=== PATIENT | male | born 1985 | race Caucasian/White ===

== ENCOUNTER 2024-07-18 07:11 | Day surgery (SDC) | payer BC, MEDICAID ==
[~2024-07-18] VITALS: Ht 193 cm; Wt 113.0 kg
[2024-07-18 07:24] VITALS: TEMP 98.9; O2SAT 100
[2024-07-18 07:26] VITALS: O2SAT 99
[2024-07-18 08:11] LABS: HEMATOCRIT. 48.8 % (42.0-52.0); HEMOGLOBIN. 16.1 g/dL (14.0-18.0); MEAN CORPUSCULAR HEMOGLOBIN 30.1 pg (28.0-32.0); MEAN CORPUSCULAR HGB CONC 33.1 g/dL (31.0-37.0); MEAN CORPUSCULAR VOLUME 90.8 fL (80.0-94.0); MEAN PLATELET VOLUME 8.3 fl (7.4-10.4); PLATELET 180 x1000/uL (130-400); RED BLOOD CELL COUNT 5.37 mill/uL (4.7-6.1); RED CELL DISTRIBUTION WIDTH 13.5 % (11.6-14.6); WHITE BLOOD COUNT 9.3 x1000/uL (4.5-11.0)
[2024-07-18 08:12] LABS: DIFFERENTIAL COMMENT 1
[2024-07-18 08:17] LABS: CHLORIDE 108 mEq/L (98-107); POTASSIUM 4.2 mEq/L (3.5-5.1); SODIUM 141 mEq/L (136-145)
[2024-07-18 08:18] LABS: CALCIUM 9.7 mg/dL (8.7-10.4); CARBON DIOXIDE 27 mEq/L (21-32)
[2024-07-18] MEDS ORDERED: KETOROLAC 30MG/ML VIAL IV STA (08:19)
[2024-07-18] MEDS ORDERED: ONDANSETRON HCL 4MG/2ML INJ IV STA (08:19)
[2024-07-18 08:23] LABS: GLUCOSE 117 mg/dL (70-105); UREA NITROGEN BLOOD 11 mg/dL (9-23)
[2024-07-18 08:45] LABS: ALANINE AMINOTRANSFERASE 53 IU/L (10-49); ALBUMIN 5.1 g/dL (3.2-4.8); ASPARTATE AMINOTRANSFERASE 21 IU/L (<34); BILIRUBIN DIRECT 0.3 mg/dL (<=3.0); BILIRUBIN TOTAL 0.9 mg/dL (0.1-1.0); ETHANOL BLOOD < 10 mg/dL (<10); PROTEIN TOTAL 6.9 g/dL (6.0-8.3)
[2024-07-18 10:06] LABS: PLATELET ESTIMATE NORMAL
[2024-07-18 10:22] LABS: CLARITY URINE CLEAR (CLEAR); COLOR URINE YELLOW (YELLOW); GLUCOSE URINE NEGATIVE (NEGATIVE); KETONES URINE NEGATIVE (NEGATIVE); LEUKOCYTE ESTERASE URINE NEGATIVE (NEGATIVE); NITRITE URINE NEGATIVE (NEGATIVE); OCCULT BLOOD URINE TRACE (NEGATIVE); PROTEIN URINE NEGATIVE (NEGATIVE); SPECIFIC GRAVITY URINE 1.023 (1.005-1.030)
[2024-07-18 10:30] VITALS: BP 137/96; PULSE 85; RESP 16
[2024-07-18] MEDS: ONDANSETRON HCL 4MG/2ML INJ IV NR (10:30)
[2024-07-18] MEDS: KETOROLAC 30MG/ML VIAL IV NR (10:30)
[2024-07-18 10:31] LABS: BACTERIA URINE 1+; RBC URINE 0-2 /hpf (0-2); SQUAMOUS EPITHELIAL CELL URINE NONE SEEN /lpf (RARE/1+); WBC URINE 0-2 /hpf (0-2); YEAST URINE NONE SEEN
[2024-07-18] MEDS: PIPERACILLIN/TAZO 3.375G/50ML 50 ML IV STA (11:42)
[2024-07-18] MEDS ORDERED: BUPIVACAINE HCL/PF 0.5% (5MG/ML) 10ML ONE ×2 (12:57→13:31)
[2024-07-18] MEDS ORDERED: SKIN ADHESIVE 0.7 GM EA TOP ONE ×2 (12:58→14:29)
[2024-07-18] MEDS ORDERED: PROPOFOL 200MG/20ML VIAL IV ONE (13:41)
[2024-07-18] MEDS ORDERED: HYDROMORPHONE HCL/PF 1MG/ML INJ ONE (13:41)
[2024-07-18] MEDS ORDERED: ROCURONIUM BROMIDE 10MG/ML VIAL 5ML IV ONE (13:42)
[2024-07-18] MEDS ORDERED: HYDRALAZINE 20MG/ML VIAL ONE (14:09)
[2024-07-18] MEDS ORDERED: FENTANYL CITRATE/PF 50MCG/ML 2ML VIAL ONE (14:10)
[2024-07-18] MEDS ORDERED: NEOSTIGMINE METHYLSULFATE 1MG/ML 10 ML VIAL ONE (14:34)
[2024-07-18] MEDS ORDERED: GLYCOPYRROLATE 0.2 MG/ML 2ML VIAL ONE ×2 (14:34→14:35)
[2024-07-18] MEDS ORDERED: HYDROMORPHONE HCL/PF 1MG/ML INJ IV PRN ×3 (15:00)
[2024-07-18] MEDS ORDERED: ONDANSETRON HCL 4MG/2ML INJ IV PRN (15:00)
[2024-07-18] MEDS ORDERED: HYDRALAZINE 20MG/ML VIAL IV PRN (15:00)
[2024-07-18] MEDS ORDERED: GLYCOPYRROLATE 0.2MG/ML VIAL 5ML IV PRN (15:00)
[2024-07-18] MEDS ORDERED: LABETALOL 5MG/ML 4ML INJ IV PRN (15:00)
== END 2024-07-18 17:20 | disposition home or self-care (01) ==
LOC: ER 07:11 → EDBEDREQTM 12:46 → EDBEDREQ 12:46 → OR 14:45 → ER 16:43 → OR 17:20
PROVIDERS: ATTEND Surgery
DX: K35.80 Unspecified acute appendicitis (principal); Z79.899 Other long term (current) drug therapy; Z98.890 Other specified postprocedural states
CPT/HCPCS: 80076; 80048; 81003; 80320; 83690; 85025; 36415; 88304; 74176; 76705; 99285; 44970; J3010; J3490 ×3; J0360; J1885; J2710; J2405; J2543; J2704; J1171; G0480